=== PATIENT | female | born 1955 | race Caucasian/White ===

== ENCOUNTER → 2017-02-06 | Outpatient (CLI) | payer OTHER ==
[~2017-02-06] MED LIST: ACETAMINOPHEN325 MG PO; ASPIRIN81 M2 PO; ASPIRIN81 MG PO; ATORVASTATIN CA40 MG PO; CLOPIDOGREL75 MG PO; COATED ASPIRIN325 M1 PO; ESTRACE PO; ESTRACE0.5 MG PO; ESTRADIOL0.5 MG PO; FLEXERIL PO; LEVAQUIN PO; LIPITOR40 MG PO; LISINOPRIL5 MG PO; MAG-OX 400400 M1 PO; MAGNESIUM-VIT1 EACH PO; METOPROLOL TAR25 MG PO; MULTIVITAMIN1 UDCAP PO; NITRO-DUR1 PATCH .1 TD; NITROGLYGERIN0.4 MG SL; NITROQUICK0.4 MG SL; PANTOPRAZOLE SO40 MG PO; PLAVIX PO; SERTRALINE HCL100 MG PO; VICODIN PO; XANAX0.5 MG PO; ZESTRIL10 M1 PO; ZESTRIL10 M2 PO; ZOLOFT PO; ZOLOFT100 MG PO
--- NOTE | ~2017-02-06 | MY29 ---
[facility] A Service of [facility] & [facility] RADIOLOGY TEXT RESULTS PATIENT: ERASTO COTO LOCATION: [facility] : 59 UNIT #: [id number] AGE: [address]: Bettye Hernandez MD SEX: F ORDER DR: [id number] [facility] [address] [place], [place] [address] [id number] O MR#: [id number] Acc #: [id number] NAME: ERASTO COTO : 1955 SEX: F STUDY DATE/TIME: 02/06/2017 15:58 UNIT: [facility] ROOM: STUDY DESCRIPTION: MY JANINE SCREENING W/ CAD BILAT Attending Physician: Bettye Hernandez M.D. Referring Physician: Bettye Hernandez M.D. Ordering Physician: Bettye Hernandez M.D. Primary Care Physician: Bettye Hernandez M.D. MEDICAL IMAGING REPORT This report is preliminary unless electronic signature is present EXAM Digital screening mammogram 02/06/2017 [facility]. HISTORY 61-year-old woman, prior reduction mammoplasties, 1999. Patient is on hormone replacement. Annual screen. COMPARISON Mammograms date to 07/08/2007 with most recent 07/29/2013. FINDINGS Digital imaging of each breast was completed utilizing a two-view examination of each breast in craniocaudal and mediolateral-oblique projections. Review and interpretation of digital mammograms include a second review in conjunction with FDA-approved CAD device. There is a normal parenchymal presentation bilaterally consistent with the patient's age. There are no breast masses imaged and no parenchymal asymmetry is visualized. There are no suspicious microcalcifications and I see no focal architectural disturbance. IMPRESSION Negative screening digital mammogram. One-year followup recommended. Patients over the age of 40 are entered into a reminder system with target due date for the next mammogram. A result letter will also be sent to the patient. BIRADS: 1 Negative Dictated by... Truman Moeller M.D. [facility] A Service of [facility] RADIOLOGY TEXT RESULTS PATIENT: ERASTO COTO LOCATION: [facility] : 59 UNIT #: [id number] AGE: [address]: Bettye Hernandez MD SEX: F ORDER DR: THIS IS AN ELECTRONICALLY VERIFIED REPORT Truman Moeller M.D. at 02/07/2017 11:25 AM Tez TD: 02/07/2017 11:15 JOB #: [id number] MEDICAL IMAGING REPORT Page 1 of 1 COPY
== END | disposition home or self-care (01) ==
LOC: CWCC 08:30
DX: Z12.31 Encounter for screening mammogram for malignant neoplasm of breast (principal); Z79.890 Hormone replacement therapy
CPT/HCPCS: G0202